=== PATIENT | female | born 1940 | race Caucasian/White ===

== ENCOUNTER → 2016-12-29 | Outpatient (CLI) | payer MEDICARE ==
--- NOTE | ~2016-12-29 | BD1 ---
[facility] A Service of [facility] & [facility] RADIOLOGY TEXT RESULTS PATIENT: DESTINEY RAMIREZ LOCATION: [facility] : 36 UNIT #: [id number] AGE: [address]: Herber Roche MD SEX: F ORDER DR: [id number] [facility] [address] [place], [place] [address] [id number] O MR#: [id number] Acc #: [id number] NAME: DESTINEY RAMIREZ : 1940 SEX: F STUDY DATE/TIME: 12/29/2016 10:09 UNIT: [facility] ROOM: STUDY DESCRIPTION: BD Dexa Bone Dens 1+ Site Attending Physician: Herber Roche M.D. Referring Physician: Herber Roche M.D. Ordering Physician: Herber Roche M.D. Primary Care Physician: Brigido Genao M.D. MEDICAL IMAGING REPORT This report is preliminary unless electronic signature is present EXAM DXA scan HISTORY Postmenopausal screening for osteoporosis. FINDINGS Bone density was assessed utilizing a Hologic bone densitometer. Total bone density within the lumbar spine was calculated at 0.588 g/cm2 with a T-score of -4.2. Total bone density in the proximal left femur was calculated at 0.687 g/cm2 with a T-score of -2.1. IMPRESSION Total bone density within the lumbar spine exceeds 2.5 standard deviations below the mean and is compatible with the World Health Organization classification for osteoporosis. This places the patient at a high fracture risk. The bone density within the proximal left femur is in the range for osteopenia. Dictated by... Digna Hidalgo M.D. THIS IS AN ELECTRONICALLY VERIFIED REPORT Digna Hidalgo M.D. at 12/29/2016 5:01 PM Octavio TD: 12/29/2016 14:29 JOB #: [id number] MEDICAL IMAGING REPORT COPY
== END | disposition home or self-care (01) ==
LOC: CWCC 09:32
DX: Z13.820 Encounter for screening for osteoporosis (principal); Z87.311 Personal history of (healed) other pathological fracture; M85.88 Other specified disorders of bone density and structure, other site
CPT/HCPCS: 77080

== ENCOUNTER → 2017-01-24 | Outpatient (CLI) | payer MEDICARE | END | disposition home or self-care (01) | LOC: CLAB 11:09 | PROVIDERS: Specialist | DX: S42.302D Unspecified fracture of shaft of humerus, left arm, subsequent encounter for fracture with routine healing (principal); M81.0 Age-related osteoporosis without current pathological fracture | CPT/HCPCS: 36415; 82306; 82330; 82652 ==